=== PATIENT | female | born 1995 | race Caucasian/White ===

== ENCOUNTER 2021-04-17 17:29 | Emergency (ER) | payer BC, MEDICAID ==
[~2021-04-17] VITALS: Ht 160 cm; Wt 63.6 kg
[2021-04-17 17:52] LABS: HEMATOCRIT 45.9 % (36.0-47.0); HEMOGLOBIN 15.3 g/dl (12.0-15.5); MEAN CORPUSCULAR HEMOGLOBIN 28.5 pg (27.0-33.0); MEAN CORPUSCULAR HGB CONC 33.3 g/dl (32.0-36.5); MEAN CORPUSCULAR VOLUME 85.5 fl (80.0-96.0); PLATELET COUNT, AUTOMATED 218 10^3/uL (150-450); RED BLOOD COUNT 5.37 10^6/uL (4.00-5.40)
[2021-04-17] MEDS ORDERED: holter monitor (17:52)
[2021-04-17] MEDS ORDERED: NS 1,000 ML IV ONE (18:00)
[2021-04-17 18:27] LABS: HCG, SERUM QUALITATIVE NEGATIVE (NEGATIVE)
[2021-04-17 18:31] LABS: BLOOD UREA NITROGEN 10 MG/DL (7-18); CALCIUM LEVEL 9.4 MG/DL (8.5-10.1); CARBON DIOXIDE LEVEL 25 MEQ/L (21-32); CHLORIDE LEVEL 106 MEQ/L (98-107); CREATININE FOR GFR 0.75 MG/DL (0.55-1.30); FREE THYROXINE INDEX 4.8 % (1.3-4.8); GLOMERULAR FILTRATION RATE > 60.0 (>60); GLUCOSE, FASTING 97 MG/DL (70-100); MAGNESIUM LEVEL 2.1 MG/DL (1.8-2.4); POTASSIUM SERUM 3.7 MEQ/L (3.5-5.1); SODIUM LEVEL 138 MEQ/L (136-145); T UPTAKE 36 % (30-39); THYROID STIMULATING HORMONE 0.939 uIU/ML (0.358-3.740); THYROXINE (T4) 13.2 UG/DL (4.5-12.0)
[2021-04-17 19:55] VITALS: BP 118/71
== END 2021-04-17 19:55 | disposition home or self-care (01) ==
LOC: M ED 17:29
DX: R00.2 Palpitations (principal); Z88.1 Allergy status to other antibiotic agents; Z88.2 Allergy status to sulfonamides; Z88.5 Allergy status to narcotic agent